=== PATIENT | male | born 1980 | race Caucasian/White ===

== ENCOUNTER → 2016-06-26 | Outpatient (REF) | payer BC ==
[~2016-06-26] MED LIST: AMLO10TA; ASPI81TA83; LABE30TA; No Historical Meds; PAIN325T; ZOCO40TA
[2016-06-26 13:07] LABS: ALBUMIN/GLOBULIN RATIO 1.25 (1.00-1.93); ALKALINE PHOSPHATASE 111 U/L (45-117); ALT/SGPT 43 U/L (12-78); ANION GAP 9 MEQ/L (8-16); AST/SGOT 19 U/L (15-37); BILIRUBIN,TOTAL 0.4 MG/DL (0.2-1.0); BLOOD UREA NITROGEN 31 MG/DL (7-18); CALCIUM LEVEL 9.6 MG/DL (8.5-10.1); CARBON DIOXIDE LEVEL 28 MEQ/L (21-32); CHLORIDE LEVEL 104 MEQ/L (98-107); CHOLESTEROL LEVEL 234 MG/DL (<200); GLOMERULAR FILTRATION RATE 49.1 (>60); GLUCOSE, FASTING 129 MG/DL (70-105); POTASSIUM SERUM 4.5 MEQ/L (3.5-5.1); SODIUM LEVEL 141 MEQ/L (136-145); TOTAL PROTEIN 7.2 GM/DL (6.4-8.2); TRIGLYCERIDES LEVEL 894 MG/DL (<150)
== END ==
LOC: M SFHCADAM 08:03
PROVIDERS: ATTEND Physician Assistant Medical
DX: I10 Essential (primary) hypertension (principal)

== ENCOUNTER → 2016-07-06 | Outpatient (REF) | payer BC ==
[2016-07-06 12:25] LABS: BASO # 0.1 K/mm3 (0.0-0.2); BASO % 1.1 % (0.0-1.0); EOS # 0.1 K/mm3 (0.0-0.50); EOS % 0.8 % (0.0-3.0); LARGE UNSTAINED CELL # 0.2 K/mm3 (0.0-0.4); LARGE UNSTAINED CELL % 2.2 % (0.0-4.0); LYMPH # 1.4 K/mm3 (1.5-4.5); LYMPH % 19.1 % (24.0-44.0); MEAN CORPUSCULAR HEMOGLOBIN 29.3 pg (27.0-33.0); MEAN CORPUSCULAR HGB CONC 32.8 g/dl (32.0-36.5); MEAN CORPUSCULAR VOLUME 89.4 fl (80.0-96.0); MONO # 0.4 K/mm3 (0.0-0.8); MONO % 6.1 % (0.0-5.0); NEUTROPHILS # 5.1 K/mm3 (1.8-7.7); NEUTROPHILS % 70.7 % (36.0-66.0); PLATELET COUNT, AUTOMATED 263 k/mm3 (150-450); RED CELL DISTRIBUTION WIDTH 13.7 % (11.5-14.5); WHITE BLOOD COUNT 7.2 K/mm3 (4.0-10.0)
[2016-07-06 12:55] LABS: FREE T4 0.82 NG/DL (0.76-1.46)
== END ==
LOC: M SFHCADAM 10:08
PROVIDERS: ATTEND Physician Assistant Medical
DX: E78.5 Hyperlipidemia, unspecified (principal); N18.3 Chronic kidney disease, stage 3 (moderate); R73.01 Impaired fasting glucose

== ENCOUNTER → 2016-08-15 | Outpatient (REF) | payer BC ==
[2016-08-15 21:48] LABS: FREE T4 0.89 NG/DL (0.76-1.46)
== END ==
LOC: M SFHCADAM 14:55
PROVIDERS: ATTEND Physician Assistant Medical
DX: E03.9 Hypothyroidism, unspecified (principal)

== ENCOUNTER → 2016-10-23 | Outpatient (REF) | payer BC ==
[2016-10-23 19:04] LABS: FREE T4 0.89 NG/DL (0.76-1.46)
== END ==
LOC: M SFHCPLAZ 16:12
PROVIDERS: ATTEND Physician Assistant Medical
DX: E03.9 Hypothyroidism, unspecified (principal)

== ENCOUNTER → 2016-11-09 | Outpatient (REF) | payer BC ==
[2016-11-09 15:16] LABS: COMPLEMENT C4 31.2 MG/DL (10-40)
== END ==
LOC: M LAB REF 13:45
PROVIDERS: ATTEND Internal Medicine Nephrology
DX: R80.9 Proteinuria, unspecified (principal)

== ENCOUNTER → 2017-02-08 | Outpatient (REF) | payer BC ==
[2017-02-08 13:43] LABS: INR 0.94
== END ==
LOC: M LAB REF 12:49
PROVIDERS: ATTEND Internal Medicine Nephrology
DX: R80.9 Proteinuria, unspecified (principal)

== ENCOUNTER → 2017-02-21 | Outpatient (CLI) | payer BC ==
[~2017-02-21] MED LIST changes: +LIDOCAINE 1% MDV 20ML VIAL As Ordered ONE
--- NOTE | 2017-02-21 18:49 | RO ---
DATE OF PROCEDURE: 02/21/2017 PREPROCEDURE DIAGNOSIS: POSTPROCEDURE DIAGNOSIS: OPERATIVE PROCEDURE: Left kidney biopsy. INDICATIONS FOR PROCEDURE: Proteinuria and hematuria. DESCRIPTION OF PROCEDURE: Mr. Tijerina is a 36-year-old male who has proteinuria and hematuria. A diagnostic kidney biopsy was discussed and the patient consented for it. Informed consent was signed prior to procedure. The patient was brought to ultrasound room and put in prone position with a cushion under his belly. Left kidney was identified and located with ultrasound. 1% lidocaine used for local anesthesia. Skin was cleaned and prepped in usual sterile fashion. After giving lidocaine, a small incision was made in the skin for renal biopsy. Under direct ultrasound guidance, after infiltration of 1% lidocaine, a needle biopsy was advanced to the kidney. After three attempts, kidney tissue was obtained without any problems. Tissue sent to pathology in three different bottles. The patient tolerated the procedure well. No complications. After the procedure, ultrasound was performed and no significant bleeding was noted around the kidney. The patient was sent back to room for observation. He will be monitored for 2 hours prior to discharge. Orders for post procedure care were written.
--- NOTE | 2017-02-26 09:29 | REP ---
ULTRASOUND GUIDANCE: HISTORY: Needle biopsy left kidney. 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 FINDINGS: Ultrasound guidance is provided to Dr. Padron, who performed ultrasound-guided needle biopsy of the left kidney. Signed by Andrew Whelan MD 02/26/2017 09:31 A
== END ==
LOC: M RADPRO 10:30
PROVIDERS: ATTEND Internal Medicine Nephrology
DX: N03.9 Chronic nephritic syndrome with unspecified morphologic changes (principal); N18.3 Chronic kidney disease, stage 3 (moderate); Z88.0 Allergy status to penicillin; F12.20 Cannabis dependence, uncomplicated; Z79.899 Other long term (current) drug therapy; Z79.82 Long term (current) use of aspirin

== ENCOUNTER → 2017-04-05 | Outpatient (REF) | payer BC ==
[~2017-04-05] MED LIST changes: -LIDOCAINE 1% MDV 20ML VIAL As Ordered ONE
== END ==
LOC: M LAB REF 13:27
PROVIDERS: ATTEND Internal Medicine Nephrology
DX: N18.3 Chronic kidney disease, stage 3 (moderate) (principal); R80.9 Proteinuria, unspecified; I15.0 Renovascular hypertension

== ENCOUNTER → 2017-04-09 | Outpatient (CLI) | payer BC ==
--- NOTE | 2017-04-09 18:33 | REP ---
RIGHT FOOT SERIES, FOUR VIEWS: There is no evidence of an acute fracture, dislocation or intrinsic bone disease. IMPRESSION: No fracture or dislocation. Signed by Isrrael Lowe MD 04/10/2017 11:38 A
== END ==
LOC: M ADAMS 09:16
PROVIDERS: ATTEND Physician Assistant Medical
DX: S90.111A Contusion of right great toe without damage to nail, initial encounter (principal); X58.XXXA Exposure to other specified factors, initial encounter; Y92.89 Other specified places as the place of occurrence of the external cause; Y99.9 Unspecified external cause status; Y93.9 Activity, unspecified

== ENCOUNTER → 2017-04-12 | Outpatient (REF) | payer BC | LOC: M LAB REF 13:29 → M LABDRWAD 13:31 | PROVIDERS: ATTEND Physician Assistant | DX: M79.674 Pain in right toe(s) (principal) ==

== ENCOUNTER → 2017-05-10 | Outpatient (REF) | payer BC ==
[2017-05-10 12:44] LABS: BASO # 0.1 10^3/uL (0.0-0.2); BASO % 0.8 % (0.0-1.0); EOS # 0.1 10^3/uL (0.0-0.50); EOS % 0.9 % (0.0-3.0); IMMATURE GRANULOCYTE % 0.8 % (0-0); LYMPH # 2.8 10^3/uL (1.5-4.5); LYMPH % 28.1 % (24.0-44.0); MEAN CORPUSCULAR HEMOGLOBIN 29.2 pg (27.0-33.0); MEAN CORPUSCULAR HGB CONC 32.9 g/dl (32.0-36.5); MEAN CORPUSCULAR VOLUME 88.8 fl (80.0-96.0); MONO # 1.1 10^3/uL (0.0-0.8); MONO % 11.2 % (0.0-5.0); NEUTROPHILS # 5.7 10^3/uL (1.8-7.7); NEUTROPHILS % 58.2 % (36.0-66.0); PLATELET COUNT, AUTOMATED 285 10^3/uL (150-450); RED CELL DISTRIBUTION WIDTH 13.8 % (11.5-14.5); WHITE BLOOD COUNT 9.8 10^3/uL (4.0-10.0)
[2017-05-10 13:14] LABS: ALBUMIN 3.6 GM/DL (3.2-5.2); ALBUMIN/GLOBULIN RATIO 1.06 (1.00-1.93); BILIRUBIN,TOTAL 0.4 MG/DL (0.2-1.0); CALCIUM LEVEL 9.1 MG/DL (8.5-10.1); CREATININE FOR GFR 1.81 MG/DL (0.70-1.30); GLOMERULAR FILTRATION RATE 45.4 (>60); POTASSIUM SERUM 4.1 MEQ/L (3.5-5.1)
== END ==
LOC: M SFHCADAM 08:12
PROVIDERS: ATTEND Physician Assistant Medical
DX: N18.3 Chronic kidney disease, stage 3 (moderate) (principal); E03.9 Hypothyroidism, unspecified; R73.01 Impaired fasting glucose

== ENCOUNTER → 2017-07-22 | Outpatient (REF) | payer BC ==
[2017-07-22 19:48] LABS: URIC ACID 8.7 MG/DL (3.5-7.2)
== END ==
LOC: M SFHCADAM 16:49
DX: M1A.3710 Chronic gout due to renal impairment, right ankle and foot, without tophus (tophi) (principal)
CPT/HCPCS: 84550

== ENCOUNTER → 2018-02-04 | Outpatient (REF) | payer BC ==
[2018-02-04 14:27] LABS: ALBUMIN 3.9 GM/DL (3.2-5.2); ALKALINE PHOSPHATASE 73 U/L (45-117); ALT/SGPT 60 U/L (12-78); ANION GAP 10 MEQ/L (8-16); AST/SGOT 26 U/L (7-37); BILIRUBIN,TOTAL 0.3 MG/DL (0.2-1.0); BLOOD UREA NITROGEN 36 MG/DL (7-18); CALCIUM LEVEL 9.8 MG/DL (8.5-10.1); CARBON DIOXIDE LEVEL 23 MEQ/L (21-32); CHLORIDE LEVEL 108 MEQ/L (98-107); CHOLESTEROL LEVEL 198 MG/DL (<200); CREATININE FOR GFR 1.86 MG/DL (0.70-1.30); GLOMERULAR FILTRATION RATE 43.7 (>60); GLUCOSE, FASTING 117 MG/DL (70-100); HDL CHOLESTEROL 30 MG/DL (>40); NON-HDL-C 168 MG/DL; POTASSIUM SERUM 4.7 MEQ/L (3.5-5.1); SODIUM LEVEL 141 MEQ/L (136-145); TOTAL PROTEIN 6.9 GM/DL (6.4-8.2); TRIGLYCERIDES LEVEL 533 MG/DL (<150)
== END ==
LOC: M SFHCADAM 08:46
DX: E78.5 Hyperlipidemia, unspecified (principal); E79.0 Hyperuricemia without signs of inflammatory arthritis and tophaceous disease
CPT/HCPCS: 84550

== ENCOUNTER → 2018-04-11 | Outpatient (REF) | payer BC | LOC: M LAB REF 13:15 | DX: N18.3 Chronic kidney disease, stage 3 (moderate) (principal); R80.9 Proteinuria, unspecified | CPT/HCPCS: 84156 ==

== ENCOUNTER → 2018-07-04 | Outpatient (REF) | payer BC ==
[2018-07-04 14:54] LABS: FREE T4 0.89 NG/DL (0.76-1.46); THYROID STIMULATING HORMONE 3.39 uIU/ML (0.358-3.740)
== END ==
LOC: M SFHCADAM 10:29
PROVIDERS: ATTEND Physician Assistant Medical
DX: E03.9 Hypothyroidism, unspecified (principal)

== ENCOUNTER → 2018-10-10 | Outpatient (REF) | payer BC | LOC: M LAB REF 13:19 | PROVIDERS: ATTEND Internal Medicine Nephrology | DX: N18.3 Chronic kidney disease, stage 3 (moderate) (principal); R80.9 Proteinuria, unspecified ==

== ENCOUNTER → 2019-02-17 | Outpatient (CLI) | payer BC ==
--- NOTE | 2019-02-17 07:35 | REP ---
Clinical: Periumbilical pain. Technique: Real time [place] scale and color evaluation using linear high frequency transducer. Findings: Ultrasound examination demonstrates fat containing periumbilical hernia with a defect of approximately 3 cm diameter. Impression: Small fat containing periumbilical hernia. Electronically Signed by Javier Zapata MD 02/17/2019 07:26 A
== END ==
LOC: M RAD 06:18
PROVIDERS: ATTEND Physician Assistant
DX: R10.815 Periumbilic abdominal tenderness (principal); K42.9 Umbilical hernia without obstruction or gangrene

== ENCOUNTER → 2019-03-27 | Outpatient (REF) | payer BC | LOC: M LAB REF 13:06 | PROVIDERS: ATTEND Internal Medicine Nephrology | DX: N18.3 Chronic kidney disease, stage 3 (moderate) (principal); R80.9 Proteinuria, unspecified ==

== ENCOUNTER → 2020-02-08 | Outpatient (REF) | payer BC ==
[2020-02-08 17:43] LABS: ALBUMIN 3.8 GM/DL (3.2-5.2); ALT/SGPT 56 U/L (12-78); BILIRUBIN,TOTAL 0.4 MG/DL (0.2-1.0); BLOOD UREA NITROGEN 42 MG/DL (7-18); CALCIUM LEVEL 9.9 MG/DL (8.5-10.1); CARBON DIOXIDE LEVEL 28 MEQ/L (21-32); CHLORIDE LEVEL 109 MEQ/L (98-107); CHOLESTEROL LEVEL 224 MG/DL (<200); CHOLESTEROL RISK RATIO 6.787 (<5); CREATININE FOR GFR 2.25 MG/DL (0.70-1.30); GLOMERULAR FILTRATION RATE 34.7 (>60); GLUCOSE, FASTING 119 MG/DL (70-100); HDL CHOLESTEROL 33 MG/DL (>40); NON-HDL-C 191 MG/DL; POTASSIUM SERUM 4.4 MEQ/L (3.5-5.1); SODIUM LEVEL 142 MEQ/L (136-145); TOTAL PROTEIN 7.3 GM/DL (6.4-8.2); TRIGLYCERIDES LEVEL 670 MG/DL (<150)
== END ==
LOC: M SFHCADAM 16:45
PROVIDERS: ATTEND Physician Assistant Medical
DX: I12.9 Hypertensive chronic kidney disease with stage 1 through stage 4 chronic kidney disease, or unspecified chronic kidney disease (principal); N18.3 Chronic kidney disease, stage 3 (moderate)

== ENCOUNTER → 2020-04-29 | Outpatient (REF) | payer BC ==
[2020-04-29 18:16] LABS: CREATININE,RANDOM URINE 80.5 MG/DL; TOTAL PROTEIN,RANDOM URINE 148.7 MG/DL (0.0-12.0)
== END ==
LOC: M LAB REF 17:01
PROVIDERS: ATTEND Internal Medicine Nephrology
DX: N18.32 Chronic kidney disease, stage 3b (principal); R80.9 Proteinuria, unspecified

== ENCOUNTER → 2020-08-26 | Outpatient (REF) | payer BC ==
[2020-08-26 17:53] LABS: BACTERIA, URINE AUTO NEGATIVE (NEGATIVE); RBC, URINE AUTO 0 /HPF (0-3); SQUAMOUS EPITHELIAL CELL UR AU 0 /HPF (0-6); WBC, URINE AUTO 1 /HPF (0-3)
[2020-08-26 18:10] LABS: TOTAL PROTEIN,RANDOM URINE 220.6 MG/DL (0.0-12.0)
== END ==
LOC: M LAB REF 16:48
PROVIDERS: ATTEND Internal Medicine Nephrology
DX: N18.32 Chronic kidney disease, stage 3b (principal); R80.9 Proteinuria, unspecified

== ENCOUNTER → 2020-12-30 | Outpatient (CLI) | payer BC ==
--- NOTE | 2020-12-30 08:55 | REP ---
INDICATION: CKD STAGE 3B. COMPARISON: Renal ultrasound, 05/04/2008. TECHNIQUE: 2D ultrasound images were obtained through the kidneys and urinary bladder in multiple planes. FINDINGS: The right kidney measures 10.7 x 7.5 x 6.8 cm, with a renal cortical thickness of 12 mm. The left kidney measures 11.6 x 6.8 x 6.7 cm, with a renal cortical thickness of 11 mm. There is no evidence of hydronephrosis. There are stable mildly increased echogenicity of the renal cortex. The urinary bladder is partially evacuated. IMPRESSION: 1. Mildly increased renal cortical echogenicity consistent with medical renal disease. Stable. 2. The bladder is partially evacuated. <Electronically signed by Mundo Summers > 12/30/20 [id number]
== END ==
LOC: M RAD 07:22
PROVIDERS: ATTEND Internal Medicine Nephrology
DX: N18.32 Chronic kidney disease, stage 3b (principal)

== ENCOUNTER → 2021-02-10 | Outpatient (REF) | payer BC ==
[2021-02-10 13:54] LABS: MAGNESIUM LEVEL 1.7 MG/DL (1.8-2.4)
[2021-02-13 10:26] LABS: CREATININE FOR GFR 1.88 MG/DL (0.70-1.30); GLOMERULAR FILTRATION RATE 42.5 (>60)
== END ==
LOC: M LAB REF 13:13
PROVIDERS: ATTEND Internal Medicine Nephrology
DX: R80.9 Proteinuria, unspecified (principal); I15.0 Renovascular hypertension; N18.32 Chronic kidney disease, stage 3b

== ENCOUNTER → 2021-07-03 | Outpatient (REF) | payer BC ==
[2021-07-03 13:23] LABS: BASO # 0.1 10^3/uL (0.0-0.2); BASO % 1.1 % (0.0-1.0); EOS # 0.2 10^3/uL (0.0-0.5); EOS % 2.2 % (0.0-3.0); HEMATOCRIT 46.2 % (42.0-52.0); HEMOGLOBIN 15.1 g/dl (13.5-17.5); LYMPH # 2.2 10^3/uL (1.5-5.0); LYMPH % 26.1 % (24.0-44.0); MEAN CORPUSCULAR HEMOGLOBIN 28.9 pg (27.0-33.0); MEAN CORPUSCULAR HGB CONC 32.7 g/dl (32.0-36.5); MEAN CORPUSCULAR VOLUME 88.5 fl (80.0-96.0); MONO # 0.8 10^3/uL (0.0-0.8); NEUTROPHILS % 59.5 % (36.0-66.0); PLATELET COUNT, AUTOMATED 296 10^3/uL (150-450); RED BLOOD COUNT 5.22 10^6/uL (4.30-6.10); WHITE BLOOD COUNT 8.4 10^3/uL (4.0-10.0)
[2021-07-03 14:15] LABS: ALBUMIN 3.1 GM/DL (3.2-5.2); ALT/SGPT 60 U/L (12-78); BILIRUBIN,TOTAL 0.2 MG/DL (0.2-1.0); BLOOD UREA NITROGEN 41 MG/DL (7-18); CALCIUM LEVEL 8.9 MG/DL (8.5-10.1); CARBON DIOXIDE LEVEL 24 MEQ/L (21-32); CHLORIDE LEVEL 107 MEQ/L (98-107); CHOLESTEROL LEVEL 268 MG/DL (<200); CHOLESTEROL RISK RATIO 8.375 (<5); CREATININE FOR GFR 1.94 MG/DL (0.70-1.30); GLUCOSE, FASTING 213 MG/DL (70-100); HDL CHOLESTEROL 32 MG/DL (>40); NON-HDL-C 236 MG/DL; SODIUM LEVEL 140 MEQ/L (136-145); TOTAL PROTEIN 6.3 GM/DL (6.4-8.2); TRIGLYCERIDES LEVEL 1354 MG/DL (<150)
== END ==
LOC: M SFHCADAM 08:21
PROVIDERS: ATTEND Physician Assistant Medical
DX: I15.1 Hypertension secondary to other renal disorders (principal); E78.5 Hyperlipidemia, unspecified; K21.9 Gastro-esophageal reflux disease without esophagitis; E78.1 Pure hyperglyceridemia; R73.01 Impaired fasting glucose; E03.9 Hypothyroidism, unspecified; E66.01 Morbid (severe) obesity due to excess calories

== ENCOUNTER → 2021-08-16 | Outpatient (REF) | payer BC ==
[2021-08-16 17:16] LABS: FREE T4 0.87 NG/DL (0.76-1.46); THYROID STIMULATING HORMONE 3.39 uIU/ML (0.358-3.740)
== END ==
LOC: M SFHCADAM 13:11
PROVIDERS: ATTEND Physician Assistant Medical
DX: E03.9 Hypothyroidism, unspecified (principal)

== ENCOUNTER → 2022-04-27 | Outpatient (REF) | payer BC ==
[2022-04-27 19:32] LABS: CREATININE,RANDOM URINE 71.9 MG/DL
[2022-04-27 19:48] LABS: TOTAL PROTEIN,RANDOM URINE 287.7 MG/DL (0.0-14.0)
== END ==
LOC: M LAB REF 16:51
PROVIDERS: ATTEND Nurse Practitioner Family
DX: R80.9 Proteinuria, unspecified (principal)

== ENCOUNTER → 2022-08-10 | Outpatient (REF) | payer BC ==
[2022-08-10 15:28] LABS: ALBUMIN 3.6 G/DL (3.2-5.2); ALKALINE PHOSPHATASE 88 U/L (46-116); ALT/SGPT 33 U/L (7.0-40); AST/SGOT 28 U/L (<34); BILIRUBIN,TOTAL 0.4 MG/DL (0.3-1.2); BLOOD UREA NITROGEN 43 MG/DL (9-23); CALCIUM LEVEL 9.5 MG/DL (8.5-10.1); CARBON DIOXIDE LEVEL 25 MMOL/L (20-31); CHLORIDE LEVEL 105 MMOL/L (98-107); CHOLESTEROL LEVEL 212 MG/DL (<200); CHOLESTEROL RISK RATIO 6.44 (<5); CREATININE FOR GFR 2.08 MG/DL (0.70-1.30); GLOMERULAR FILTRATION RATE 37.7 (>60); GLUCOSE, FASTING 119 MG/DL (60-100); HDL CHOLESTEROL 32.9 MG/DL (>40); NON-HDL-C 179.1 MG/DL; POTASSIUM SERUM 4.9 MMOL/L (3.5-5.1); SODIUM LEVEL 140 MMOL/L (136-145); THYROID STIMULATING HORMONE 3.379 uIU/ML (0.55-4.78); URIC ACID 5.3 MG/DL (3.7-9.2)
[2022-08-10 15:58] LABS: HEMOGLOBIN A1c 6.2 % (4.0-6.0)
[2022-08-10 17:48] LABS: TOTAL PROTEIN 6.4 G/DL (5.7-8.2); TRIGLYCERIDES LEVEL 490 MG/DL (<150)
== END ==
LOC: M SFHCADAM 08:04
PROVIDERS: ATTEND Physician Assistant Medical
DX: E78.5 Hyperlipidemia, unspecified (principal); E78.1 Pure hyperglyceridemia; R73.01 Impaired fasting glucose; E03.9 Hypothyroidism, unspecified; E66.01 Morbid (severe) obesity due to excess calories; I15.1 Hypertension secondary to other renal disorders; J30.2 Other seasonal allergic rhinitis

== ENCOUNTER → 2022-09-07 | Outpatient (REF) | payer BC ==
[2022-09-07 18:50] LABS: CREATININE,RANDOM URINE 73.6 MG/DL
[2022-09-07 18:58] LABS: TOTAL PROTEIN,RANDOM URINE 221.5 MG/DL (0.0-14.0)
== END ==
LOC: M LAB REF 17:01
PROVIDERS: ATTEND Nurse Practitioner Family
DX: R80.9 Proteinuria, unspecified (principal)

== ENCOUNTER → 2022-10-02 | Outpatient (CLI) | payer BC ==
[~2022-10-02] MED LIST changes: +ACETAMINOPHEN 500 MG TAB As Ordered ONE; +ACETAMINOPHEN 500 MG TAB PO ONE; +LIDOCAINE 1% MDV 20ML VIAL As Ordered ONE
[2022-10-02 14:00] VITALS: BP 128/67
== END ==
LOC: M IRPRO 11:01
PROVIDERS: ATTEND Nurse Practitioner Family
DX: R80.9 Proteinuria, unspecified (principal); N18.32 Chronic kidney disease, stage 3b

== ENCOUNTER → 2022-10-10 | Outpatient (REF) | payer BC ==
[~2022-10-10] MED LIST changes: -ACETAMINOPHEN 500 MG TAB As Ordered ONE; -ACETAMINOPHEN 500 MG TAB PO ONE; -LIDOCAINE 1% MDV 20ML VIAL As Ordered ONE
[2022-10-10 16:55] LABS: THYROID STIMULATING HORMONE 1.977 uIU/ML (0.55-4.78)
[2022-10-10 16:56] LABS: FREE T4 1.18 NG/DL (0.89-1.76)
== END ==
LOC: M SFHCADAM 13:38
PROVIDERS: ATTEND Physician Assistant Medical
DX: E03.9 Hypothyroidism, unspecified (principal)

== ENCOUNTER 2023-07-28 16:43 | Emergency (ER) | payer BC, OTHER ==
[~2023-07-28] VITALS: Ht 172.7 cm; Wt 112.7 kg
[2023-07-28] MEDS ORDERED: FARX1TAB5 PO (16:56)
[2023-07-28] MEDS ORDERED: OMEP40CA4 PO (16:56)
[2023-07-28] MEDS ORDERED: LEVO75TA4 PO (16:56)
[2023-07-28] MEDS ORDERED: LOVA20TA2 PO (16:56)
[2023-07-28] MEDS ORDERED: LISI20TA37 PO (16:56)
[2023-07-28] MEDS ORDERED: VITAD400CA FT (16:56)
[2023-07-28] MEDS ORDERED: ULOR80TA PO (16:56)
[2023-07-28] MEDS ORDERED: OSTE1TAB2 PO (16:56)
[2023-07-28] MEDS ORDERED: AMLO1TAB24 PO (16:56)
[2023-07-28] MEDS ORDERED: TRUL0.5I SC (16:56)
[2023-07-28] MEDS ORDERED: FENO1CAP16 PO (16:56)
[2023-07-28 17:41] LABS: APPEARANCE, URINE CLEAR (CLEAR); BACTERIA, URINE AUTO NEGATIVE (NEGATIVE); BILIRUBIN, URINE AUTO NEGATIVE (NEGATIVE); BLOOD, URINE BLOOD NEGATIVE (NEGATIVE); COLOR, URINE YELLOW (YELLOW); GLUCOSE, URINE (UA) AUTO 2+ mg/dL (NEGATIVE); KETONE, URINE AUTO NEGATIVE (NEGATIVE); LEUKOCYTE ESTERASE, URINE AUTO NEGATIVE (NEGATIVE); MUCUS, URINE SMALL (NEGATIVE); NITRITE, URINE AUTO NEGATIVE (NEGATIVE); PROTEIN, URINE AUTO 3+ mg/dL (NEGATIVE); RBC, URINE AUTO 0 /HPF (0-3); SPECIFIC GRAVITY URINE AUTO 1.011 (1.002-1.035); SQUAMOUS EPITHELIAL CELL UR AU 0 /HPF (0-6); UROBILINOGEN, URINE AUTO 0.2 mg/dL (0.0-2.0); WBC, URINE AUTO 1 /HPF (0-3)
[2023-07-28] MEDS: LIDOCAINE 5% (LIDODERM) PATCH TD ONE ×2 (20:58→21:03)
[2023-07-28] MEDS ORDERED: LIDO5DIS41 TD (21:03)
[2023-07-28 21:56] VITALS: BP 122/80; TEMP 97.8; O2SAT 98
== END 2023-07-28 22:06 | disposition home or self-care (01) ==
LOC: M ED 16:43
DX: M54.50 Low back pain, unspecified (principal); E11.9 Type 2 diabetes mellitus without complications; I10 Essential (primary) hypertension; K21.9 Gastro-esophageal reflux disease without esophagitis; N18.30 Chronic kidney disease, stage 3 unspecified; F12.10 Cannabis abuse, uncomplicated; F10.10 Alcohol abuse, uncomplicated; Z88.0 Allergy status to penicillin; Z79.811 Long term (current) use of aromatase inhibitors; Z79.899 Other long term (current) drug therapy; Z79.84 Long term (current) use of oral hypoglycemic drugs

== ENCOUNTER → 2023-08-08 | Outpatient (CLI) | payer OTHER ==
[~2023-08-08] MED LIST changes: +AMLO1TAB24 PO; +FARX1TAB5 PO; +FENO1CAP16 PO; +LEVO75TA4 PO; +LIDO5DIS41 TD; +LISI20TA37 PO; +LOVA20TA2 PO; +OMEP40CA4 PO; +OSTE1TAB2 PO; +TRUL0.5I SC; +ULOR80TA PO; +VITAD400CA FT
== END ==
LOC: M RAD 11:40
PROVIDERS: ATTEND Nurse Practitioner Family
DX: N28.1 Cyst of kidney, acquired (principal); N17.9 Acute kidney failure, unspecified; R33.9 Retention of urine, unspecified

== ENCOUNTER → 2023-09-04 | Outpatient (REF) | payer OTHER | LOC: M SFHCADAM 16:58 | PROVIDERS: ATTEND Physician Assistant Medical | DX: J39.2 Other diseases of pharynx (principal) ==

== ENCOUNTER → 2023-11-21 | Outpatient (REF) | payer OTHER ==
[2023-11-21 13:40] LABS: BASO # 0.1 10^3/uL (0.0-0.2); BASO % 1.2 % (0.0-1.0); EOS # 0.2 10^3/uL (0.0-0.5); EOS % 2.5 % (0.0-3.0); HEMATOCRIT 49.9 % (42.0-52.0); HEMOGLOBIN 16.3 g/dl (13.5-17.5); LYMPH # 2.4 10^3/uL (1.5-5.0); LYMPH % 26.7 % (24.0-44.0); MEAN CORPUSCULAR HEMOGLOBIN 29.3 pg (27.0-33.0); MEAN CORPUSCULAR HGB CONC 32.7 g/dl (32.0-36.5); MEAN CORPUSCULAR VOLUME 89.7 fl (80.0-96.0); MONO # 0.9 10^3/uL (0.0-0.8); NEUTROPHILS # 5.4 10^3/uL (1.5-8.5); NEUTROPHILS % 58.8 % (36.0-66.0); PLATELET COUNT, AUTOMATED 270 10^3/uL (150-450); RED BLOOD COUNT 5.56 10^6/uL (4.30-6.10); WHITE BLOOD COUNT 9.1 10^3/uL (4.0-10.0)
[2023-11-21 14:12] LABS: THYROID STIMULATING HORMONE 2.039 uIU/ML (0.55-4.78)
[2023-11-21 14:13] LABS: ALKALINE PHOSPHATASE 105 U/L (46-116); ALT/SGPT 35 U/L (7.0-40); AST/SGOT 17 U/L (<34); BILIRUBIN,TOTAL 0.4 MG/DL (0.3-1.2); BLOOD UREA NITROGEN 31 MG/DL (9-23); CARBON DIOXIDE LEVEL 24 MMOL/L (20-31); CHLORIDE LEVEL 109 MMOL/L (98-107); CHOLESTEROL LEVEL 225 MG/DL (<200); CHOLESTEROL RISK RATIO 6.92 (<5); CREATININE FOR GFR 1.83 MG/DL (0.70-1.30); GLOMERULAR FILTRATION RATE 43.4 (>60); GLUCOSE, FASTING 129 MG/DL (60-100); HDL CHOLESTEROL 32.5 MG/DL (>40); NON-HDL-C 192.5 MG/DL; POTASSIUM SERUM 4.4 MMOL/L (3.5-5.1); SODIUM LEVEL 140 MMOL/L (136-145); TOTAL 25(OH) VITAMIN D 19.9 NG/ML (20.0-100.0); TOTAL PROTEIN 5.8 G/DL (5.7-8.2); TRIGLYCERIDES LEVEL 968 MG/DL (<150)
[2023-11-21 14:20] LABS: HEMOGLOBIN A1c 5.6 % (4.0-6.0)
== END ==
LOC: M SFHCADAM 07:55
PROVIDERS: ATTEND Physician Assistant Medical
DX: E11.22 Type 2 diabetes mellitus with diabetic chronic kidney disease (principal); E78.5 Hyperlipidemia, unspecified; E03.9 Hypothyroidism, unspecified; N18.32 Chronic kidney disease, stage 3b

== ENCOUNTER → 2024-07-14 | Outpatient (REF) | payer OTHER ==
[2024-07-14 18:36] LABS: ALBUMIN 3.5 G/DL (3.2-5.2); ALKALINE PHOSPHATASE 99 U/L (40-129); ALT/SGPT 44 U/L (7.0-40); AST/SGOT 18 U/L (<34); BILIRUBIN,TOTAL 0.3 MG/DL (0.3-1.2); BLOOD UREA NITROGEN 33 MG/DL (9-23); CALCIUM LEVEL 9.4 MG/DL (8.5-10.1); CARBON DIOXIDE LEVEL 25 MMOL/L (20-31); CHLORIDE LEVEL 110 MMOL/L (98-107); CHOLESTEROL LEVEL 242 MG/DL (<200); CHOLESTEROL RISK RATIO 6.68 (<5); GLOMERULAR FILTRATION RATE 41.4 (>60); GLUCOSE, FASTING 115 MG/DL (60-100); HDL CHOLESTEROL 36.2 MG/DL (>40); NON-HDL-C 205.8 MG/DL; POTASSIUM SERUM 4.9 MMOL/L (3.5-5.1); SODIUM LEVEL 146 MMOL/L (136-145); THYROID STIMULATING HORMONE 1.718 uIU/ML (0.55-4.78); TOTAL PROTEIN 6.5 G/DL (5.7-8.2); TRIGLYCERIDES LEVEL 899 MG/DL (<150)
[2024-07-14 18:37] LABS: TOTAL 25(OH) VITAMIN D 21.7 NG/ML (20.0-100.0)
== END ==
LOC: M SFHCADAM 14:41
PROVIDERS: ATTEND Physician Assistant Medical
DX: E78.5 Hyperlipidemia, unspecified (principal); E03.9 Hypothyroidism, unspecified; I15.1 Hypertension secondary to other renal disorders; E11.22 Type 2 diabetes mellitus with diabetic chronic kidney disease; Z23 Encounter for immunization

== ENCOUNTER → 2024-08-12 | Outpatient (CLI) | payer OTHER | LOC: M SOG 07:48 | PROVIDERS: ATTEND Physician Assistant | DX: M22.2X2 Patellofemoral disorders, left knee (principal); M25.562 Pain in left knee ==

== ENCOUNTER → 2025-01-18 | Outpatient (REF) | payer OTHER ==
[~2025-01-18] MED LIST changes: +LIDO1ADH93 TD; -LIDO5DIS41 TD
[2025-01-18 13:31] LABS: ALT/SGPT 21.0 U/L (7.0-40); AST/SGOT 20.0 U/L (<34); CALCIUM LEVEL 9.9 MG/DL (8.5-10.1); CARBON DIOXIDE LEVEL 27.0 MMOL/L (20-31); CHLORIDE LEVEL 107.0 MMOL/L (98-107); CHOLESTEROL LEVEL 179.0 MG/DL (<200); CHOLESTEROL RISK RATIO 4.62 (<5); CREATININE FOR GFR 1.9 MG/DL (0.70-1.30); GLOMERULAR FILTRATION RATE 44.1 (>60); LDL CHOLESTEROL 73.1 MG/DL (<100); NON-HDL-C 140.3 MG/DL; POTASSIUM SERUM 5.1 MMOL/L (3.5-5.1); SODIUM LEVEL 144.0 MMOL/L (136-145); TRIGLYCERIDES LEVEL 336.0 MG/DL (<150)
[2025-01-18 13:32] LABS: FREE T4 1.44 NG/DL (0.89-1.76)
[2025-01-18 13:40] LABS: BASO # 0.1 10^3/uL (0.0-0.2); BASO % 1.0 % (0.0-1.0); EOS # 0.0 10^3/uL (0.0-0.5); EOS % 0.3 % (0.0-3.0); LYMPH # 1.6 10^3/uL (1.5-5.0); LYMPH % 16.6 % (24.0-44.0); MONO # 0.7 10^3/uL (0.0-0.8); MONO % 7.0 % (2.0-8.0); NEUTROPHILS # 7.2 10^3/uL (1.5-8.5); NEUTROPHILS % 74.8 % (36.0-66.0); PLATELET COUNT, AUTOMATED 335 10^3/uL (150-450)
[2025-01-18 14:14] LABS: ESTIMATED AVERAGE GLUCOSE 111.0 MG/DL (60-110)
== END ==
LOC: M SFHCADAM 08:43
PROVIDERS: ATTEND Physician Assistant Medical
DX: E78.5 Hyperlipidemia, unspecified (principal); K21.9 Gastro-esophageal reflux disease without esophagitis; E03.9 Hypothyroidism, unspecified; E79.0 Hyperuricemia without signs of inflammatory arthritis and tophaceous disease; E66.01 Morbid (severe) obesity due to excess calories; N18.32 Chronic kidney disease, stage 3b; E11.22 Type 2 diabetes mellitus with diabetic chronic kidney disease

== ENCOUNTER → 2025-02-16 | Outpatient (REF) | payer OTHER | LOC: M SFHCADAM 08:24 | PROVIDERS: ATTEND Physician Assistant Medical | DX: R68.82 Decreased libido (principal) ==